=== PATIENT | female | born 1980 | race Caucasian/White ===

== ENCOUNTER 2020-07-27 05:53 | Day surgery (SDC) | payer OTHER, SELFPAY ==
[~2020-07-27] VITALS: Ht 157.5 cm; Wt 90.7 kg
[2020-07-27] MEDS ORDERED: fentaNYL citrate 0.05 MG/ML VIAL ONE (07:47)
[2020-07-27] MEDS ORDERED: MIDAZOLAM 2 MG/2 ML VIAL ONE (07:48)
[2020-07-27] MEDS ORDERED: MIDAZOLAM 2 MG/2 ML VIAL IVP SCH (09:15)
== END 2020-07-27 08:59 | disposition home or self-care (01) ==
LOC: MDS 05:53 → MFCC 06:15 → MDS 08:59
PROVIDERS: ATTEND Internal Medicine Gastroenterology
DX: R10.13 Epigastric pain (principal); K21.9 Gastro-esophageal reflux disease without esophagitis; K59.00 Constipation, unspecified; K76.0 Fatty (change of) liver, not elsewhere classified; E66.9 Obesity, unspecified; Z90.49 Acquired absence of other specified parts of digestive tract; Z80.0 Family history of malignant neoplasm of digestive organs; Z88.0 Allergy status to penicillin; Z79.899 Other long term (current) drug therapy
CPT/HCPCS: 36415; 43239; 81025; 86677; 87426; J2250; J3010